=== PATIENT | female | born 1955 ===

== ENCOUNTER 2024-12-23 12:59 | Outpatient (RCR) | payer MEDICARE, OTHER, SELFPAY | END 2024-12-23 23:59 | disposition home or self-care (01) | LOC: RPT 12:59 | PROVIDERS: ATTENDING PHYSICIAN Nurse Practitioner Adult Health; FAMILY PHYSICIAN Family Medicine | DX: N81.9 Female genital prolapse, unspecified (principal); Z73.6 Limitation of activities due to disability; R32 Unspecified urinary incontinence; M62.81 Muscle weakness (generalized) | CPT/HCPCS: 97110; 97112; 97161; 97530 ==

== ENCOUNTER 2025-01-13 14:25 | Outpatient (RCR) | payer MEDICARE, OTHER, SELFPAY | END 2025-01-13 23:59 | disposition home or self-care (01) | LOC: RPT 14:25 | PROVIDERS: ATTENDING PHYSICIAN Nurse Practitioner Adult Health; FAMILY PHYSICIAN Family Medicine | DX: N81.9 Female genital prolapse, unspecified (principal); Z73.6 Limitation of activities due to disability; R32 Unspecified urinary incontinence; M62.81 Muscle weakness (generalized) | CPT/HCPCS: 97014; 97110; 97112 ==